=== PATIENT | female | born 1950 | race African-American/Black ===

== ENCOUNTER 2017-04-16 14:32 | Emergency (ER) | payer BC, MEDICARE ==
[~2017-04-16 14:32] MED LIST: CIPR500T4 PO; HYDR200T3 PO; LORTA5 PO; PRED10 PO; TYLE500T PO
[2017-04-16 14:45] VITALS: BP 138/56; PULSE 92; RESP 16; TEMP 98.7; O2SAT 97
--- NOTE | 2017-04-16 16:19 | PD ---
Data Data Last Documented VS Vital Signs Date Time Temp Pulse Resp B/P (MAP) Pulse Ox O2 Delivery O2 Flow Rate FiO2 04/16/17 17:03 04/16/17 14:45 98.7 92 16 97 Orders Orders Finger ([id number]) (04/16/17 ) Ed Discharge Order (04/16/17 16:53) MDM Supervised Visit with VIPUL: No Narrative Course I, Dr. Macdonald, have reviewed the advance practice practitioner's documentation and am in agreement, met with the patient face to face, made the diagnosis, and the medical decision making was done by me. *My assessment and Findings: Patient seen and examined by me in addition to Sher Ruma, this does not to appear to be an infected finger to me, there is some scab formed audibly healing paronychia, she has good cap refill the finger is not hot she appears well and in no obvious distress quite pleasant. History of bilateral BKA's. I do not even see the indication for antibiotics in this patient at this time, an x-ray was reassuring. She is stable for discharge and symptomatic management follow-up with hand surgery at her discretion Disposition: 01 DISCHARGE HOME Condition: Stable Alberto Macdonald MD Apr 16, 2017 16:19
--- NOTE | 2017-04-16 16:19 | PD ---
HPI Chief Complaint: Skin Problem Time Seen by Provider: 15:47 Travel History International Travel<30 days: No Contact w/Intl Traveler<30days: No Traveled to known affect area: No History of Present Illness HPI Patient comes emergency department for reevaluation of left index finger. Patient reports that she began having an infection approximately a month ago has been on Cipro and then switched to Bactrim. Patient has not seen a hand specialist for this yet. Patient reports pain is improved with antibiotics. Describes pain as a throbbing pain but is much better than when it first started. Denies any radiation of the pain. Patient denies any known injury. Patient reports that she contacted by phone her bench hand machine yesterday who recommended she come to the emergency department for IV antibiotics. Patient denies any fevers. PFSH Past Medical History Arthritis: Yes Asthma: No Autoimmune Disease: Yes Blood Disorders: No Anxiety: Yes Depression: No Heart Rhythm Problems: No Cancer: No Cardiovascular Problems: No High Cholesterol: No Chemotherapy: No Chest Pain: No Congestive Heart Failure: No COPD: Yes Cerebrovascular Accident: No Diabetes: No Diminished Hearing: No Endocrine: No Gastrointestinal Disorders: Yes (HX ESOPH. ULCER, C-DIFF COLITIS) GERD: Yes Genitourinary: No Headaches: No Hepatitis: No Hiatal Hernia: Yes Hypertension: Yes Immune Disorder: No Implanted Vascular Access Dvce: No Kidney Stones: No Musculoskeletal: No Neurologic: Yes (LUPUS) Psychiatric: No Reproductive: No Respiratory: No Immunizations Current: Yes Migraines: No Radiation Therapy: No Renal Failure: No Seizures: No Sickle Cell Disease: No Sleep Apnea: No Thyroid Disease: No Ulcer: Yes (ESOPHAGEAL) Menopausal: Yes : 4 Para: 3 : 1 Past Surgical History Abdominal Surgery: Yes (COLOSTOMY) AICD: No Body Medical Devices: BRAIN CLIP Cardiac Surgery: No Ear Surgery: No Endocrine Surgery: No Eye Surgery: No Genitourinary Surgery: Yes (S/P collectomy, New Ileostomy) Gynecologic Surgery: No Joint Replacement: No Neurologic Surgery: Yes (ANEURYSM REMOVED FROM BRAIN) Oral Surgery: No Pacemaker: No Thoracic Surgery: No Other Surgery: Yes Social History Alcohol Use: Yes (SOCIALLY) Tobacco Use: Yes (10 CIGS DAILY) Substance Use: No Allergies-Medications (Allergen,Severity, Reaction): Coded Allergies: penicillin G (Unverified Allergy, Severe, Swelling, 04/16/17) *MDRO Multi-Drug Resistant Organism (Verified Adverse Reaction, Unknown, ) C.diff 10/2013 and 06/2014. Reported Meds & Prescriptions Reported Meds & Active Scripts Active Hydrocodone/Acetaminophen 5 mg/325 mg 1 Tab Tab 2 Tab PO Q6H PRN Reported Tylenol (Acetaminophen) 500 Mg Tab 500 Mg PO Q6H PRN Cipro (Ciprofloxacin HCl) 500 Mg Tab 500 Mg PO BID Hydroxychloroquine Sulfat (Hydroxychloroquine Sulfate) 200 Mg Tab 200 Mg PO Q12 Deltasone 10 Mg Tab (Prednisone) 10 Mg Tab 5 Mg PO DAILY Review of Systems Except as stated in HPI: all other systems reviewed are Neg Physical Exam Narrative GENERAL: Well-developed, well nourished, in no acute distress, and non-ill appearing. SKIN: Patient appears to have a well-healing paronychia of the left index finger. It is afebrile, nontender, and without drainage. There is no crepitus or fluctuation. HEAD: Atraumatic. Normocephalic. EYES: Pupils equal and round. EOMI. No scleral icterus. No injection or drainage. ENT: No nasal bleeding or discharge. Mucous membranes pink and moist. NECK: Trachea midline. Supple. No nuclear rigidity. CARDIOVASCULAR: Capillary refill is equal bilateral upper extremities. RESPIRATORY: No accessory muscle use. No respiratory distress. MUSCULOSKELETAL: No obvious deformities. No clubbing. No cyanosis. No edema. Full range of motion. NEUROLOGICAL: Awake and alert. No obvious cranial nerve deficits. Motor grossly within normal limits. Normal speech. PSYCHIATRIC: Appropriate mood and affect; insight and judgment normal. Data Data Last Documented VS Vital Signs Date Time Temp Pulse Resp B/P (MAP) Pulse Ox O2 Delivery O2 Flow Rate FiO2 04/16/17 17:03 04/16/17 14:45 98.7 92 16 97 Orders Orders Finger ([id number]) (04/16/17 ) Ed Discharge Order (04/16/17 16:53) MDM Medical Decision Making Medical Screen Exam Complete: Yes Emergency Medical Condition: Yes Interpretation(s) Last Impressions Finger X-Ray 04/16/17 0000 Signed Impressions: Service Date/Time: April 16:22 - CONCLUSION: Osteopenia and degenerative changes involving the bony structures especially at the DIP joints. Few small calcifications are seen the soft tissues of the distal second finger. No acute fracture or joint dislocation. Shawn Funes MD Differential Diagnosis Paronychia, healing wound, osteomyelitis Narrative Course The patient presented with a healing paronychia to the finger. There was no extending cellulitis or evidence of suppurative tendonitis. There was no evidence of subungual involvement or felon. Incision and drainage was performed and small pus was liberated. The patient was given wound care and infection warnings and discharged home. The patient was also instructed to follow up with referred physician and warnings to return to ED if worsens, or as directed. The patient agreed with plan. Patient in no obvious distress upon re-evaluation. All pertinent Radiology result(s) discussed with patient. Discussed patient with Dr. Macdonald, who saw and evaluated the patient and is in agreement with plan of care and disposition. Any questions/concerns in reference to patient diagnosis/condition discussed and clarified prior to patient's discharge. Reinforced sheer importance of close follow up with patient's primary physician or primary care clinic and hand surgeon. Instructed patient to return to ED immediately, if symptoms return /worsen. Patient showed understanding of above instructions. Further instructions and recommendations were detailed in discharge paperwork. Patient left without difficulty out of ED at discharge. Diagnosis Primary Impression: Wound healing, delayed Referrals: Nader Mcneill III, MD Patient Instructions: Acute Wound Care (DC), General Instructions, Paronychia ( ED) Additional Instructions: Follow-up with your primary care physician and/or hand surgeon in 1-3 days for reevaluation. Keep wound dry and clean as possible using soap and water. Use Neosporin to promote healing. Soak affected finger in warm Epsom salt baths a few times throughout the day. Return to the emergency department if symptoms get worse. Disposition: 01 DISCHARGE HOME Condition: Stable Cecil Hendrix Apr 16, 2017 16:19
--- NOTE | 2017-04-16 16:39 | RADRPT ---
EXAM DATE/TIME: 04/16/2017 16:22 [facility] COMPARISON: No previous studies available for comparison. INDICATIONS : Finger pain, skin issue. MEDICAL HISTORY : Lupus. SURGICAL HISTORY : Colostomy. Bilateral leg amputations. Brain surgery. Bilateral cataract surgery. ENCOUNTER: Initial ACUITY: 1 month PAIN SCORE: 6/10 LOCATION: Left upper extremity 2nd digit, cuticle area. FINDINGS: Examination of the second digit of the left hand demonstrates no evidence of fracture or dislocation. There is osteopenia and some degenerative changes involving the DIP joints. Soft tissues are grossly unremarkable. There is some nonspecific calcifications in the soft tissues of the distal second fing er. CONCLUSION: Osteopenia and degenerative changes involving the bony structures especially at the DIP joints. Few s mall calcifications are seen the soft tissues of the distal second finger. No acute fracture or joint dislocation. Shawn Funes MD on April 16, 2017 at 16:36 Board Certified Radiologist. This report was verified electronically.
== END 2017-04-16 17:03 | disposition home or self-care (01) ==
LOC: NEPK 14:32
DX: L03.012 Cellulitis of left finger (principal); F41.9 Anxiety disorder, unspecified; J44.9 Chronic obstructive pulmonary disease, unspecified; K21.9 Gastro-esophageal reflux disease without esophagitis; I10 Essential (primary) hypertension; M32.9 Systemic lupus erythematosus, unspecified; Z89.512 Acquired absence of left leg below knee; Z89.511 Acquired absence of right leg below knee; F17.210 Nicotine dependence, cigarettes, uncomplicated
CPT/HCPCS: 73140; 99283

== ENCOUNTER 2017-05-27 17:28 | Inpatient (IN) | payer MEDICARE, BC ==
[~2017-05-27] VITALS: Ht 154.9 cm; Wt 45.8 kg
[2017-05-27 17:36] VITALS: BP 157/73; PULSE 88; RESP 17; TEMP 98.5; O2SAT 100
[2017-05-27 18:13] VITALS: BP_SYST 148; BP_SYST 162; BP_DIAS 70; BP_DIAS 72; PULSE 87; RESP 18; O2SAT 95
[2017-05-27] MEDS ORDERED: SODIUM CHLORIDE 0.9% FLUSH 10 ML FLUSH IV FLUSH PRN ×2 (18:30→23:00)
[2017-05-27] MEDS ORDERED: MORPHINE SULFATE 4 MG/ML INJ IV PUSH ONE (18:30)
[2017-05-27] MEDS ORDERED: ONDANSETRON HCL 4 MG/2 ML VIAL IVP ONE (18:30)
[2017-05-27 18:33] VITALS: O2SAT 97
[2017-05-27] MEDS ORDERED: PLAQ200T PO (18:34)
--- NOTE | 2017-05-27 18:38 | PD ---
HPI Chief Complaint: Skin Problem Time Seen by Provider: 18:13 Travel History International Travel<30 days: No Contact w/Intl Traveler<30days: No Traveled to known affect area: No History of Present Illness HPI Patient is a 67-year-old female presenting emergency department for evaluation of right thumb pain and swelling. Patient states her symptoms started at the end of March. She reports noticing pain in her thumb, this has progressed. She states for the last 2 weeks she has had what appeared to be an infection on the side of her fingernail. She came to the emergency department about 10 days ago and it was drained. Since that time, more specifically for the last 4-5 days she has had increased swelling, and a blackened area to the medial aspect of the nail. Patient reports a history of peripheral artery disease, peripheral vascular disease. Patient states the pain is 8 out of 10, she states is aching and throbbing. She denies any fever, chills, drainage. Patient is on any blood thinners secondary to history of an aneurysm. PFSH Past Medical History Arthritis: Yes Autoimmune Disease: Yes Anxiety: Yes COPD: Yes Gastrointestinal Disorders: Yes (HX ESOPH. ULCER, C-DIFF COLITIS) GERD: Yes Hiatal Hernia: Yes Hypertension: Yes Neurologic: Yes (LUPUS) Immunizations Current: Yes Ulcer: Yes (ESOPHAGEAL) Menopausal: Yes : 4 Para: 3 : 1 Past Surgical History Abdominal Surgery: Yes (COLOSTOMY) Body Medical Devices: BRAIN CLIP Genitourinary Surgery: Yes (S/P collectomy, New Ileostomy) Neurologic Surgery: Yes (ANEURYSM Repair) Other Surgery: Yes Social History Alcohol Use: Yes (SOCIALLY) Tobacco Use: Yes (10 CIGS DAILY) Substance Use: No Allergies-Medications (Allergen,Severity, Reaction): Coded Allergies: penicillin G (Unverified Allergy, Severe, Swelling, 05/27/17) *MDRO Multi-Drug Resistant Organism (Verified Adverse Reaction, Unknown, ) C.diff 10/2013 and 06/2014. Reported Meds & Prescriptions Reported Meds & Active Scripts Active Reported Plaquenil (Hydroxychloroquine Sulfate) 200 Mg Tab 100 Mg PO DAILY Take with food Review of Systems Except as stated in HPI: all other systems reviewed are Neg Musculoskeletal: Positive: Myalgias, Edema, Pain Skin: Positive Change in Pigmentation, Positive Lesions Physical Exam Narrative GENERAL: Thin, well-developed, alert -[place] female. Presenting in no acute distress. SKIN: Warm and dry. Edema to right first finger, there is an area of eschar to the lateral aspect of the left first fingernail extending to the middle of the base of the nail, discoloration to the finger pad. There is significant tenderness to palpation. Decreased capillary refill. HEAD: Atraumatic. Normocephalic. EYES: Pupils equal and round. No scleral icterus. No injection or drainage. ENT: No nasal bleeding or discharge. Mucous membranes pink and moist. NECK: Trachea midline. No JVD. CARDIOVASCULAR: Regular rate and rhythm. 2+ radial pulse, brisk less than 3 second capillary refill in the second through fifth fingers. RESPIRATORY: No accessory muscle use. Clear to auscultation. Breath sounds equal bilaterally. GASTROINTESTINAL: Abdomen soft, non-tender, nondistended. Hepatic and splenic margins not palpable. MUSCULOSKELETAL: Extremities without clubbing, cyanosis, or edema. No obvious deformities. NEUROLOGICAL: Awake and alert. No obvious cranial nerve deficits. Motor grossly within normal limits. Five out of 5 muscle strength in the arms and legs. Normal speech. PSYCHIATRIC: Appropriate mood and affect; insight and judgment normal. Data Data Last Documented VS Vital Signs Date Time Temp Pulse Resp B/P (MAP) Pulse Ox O2 Delivery O2 Flow Rate FiO2 05/27/17 19:52 83 18 161/74 (103) Room Air 05/27/17 18:33 97 05/27/17 17:36 98.5 Orders Orders Complete Blood Count With Diff (05/27/17 18:23) C-Reactive Protein (Crp) (05/27/17 18:23) Westergren Sedimentation Rate (05/27/17 18:23) Comprehensive Metabolic Panel (05/27/17 18:23) Iv Access Insert/Monitor (05/27/17 18:23) Ecg Monitoring (05/27/17 18:23) Oximetry (05/27/17 18:23) Morphine Inj (Morphine Inj) (05/27/17 18:30) Ondansetron Inj (Zofran Inj) (05/27/17 18:30) Sodium Chloride 0.9% Flush (Ns Flush) (05/27/17 18:30) Ct Hand W/O Contrast (05/27/17 ) Oxycodone-Acetamin 5-325 Mg (Percocet (05/27/17 19:45) Vancomycin Inj (Vancomycin Inj) (05/27/17 19:45) Aztreonam Inj (Azactam Inj) (05/27/17 19:45) Blood Culture (05/27/17 19:36) Hand, Complete ([id number]) (05/27/17 ) C Diff Toxin Pcr (05/27/17 20:52) Admit Order (Ed Use Only) (05/27/17 21:47) Labs Laboratory Tests Test 05/27/17 18:40 05/27/17 21:02 White Blood Count 6.6 TH/MM3 Red Blood Count 3.76 MIL/MM3 Hemoglobin 12.2 GM/DL Hematocrit 36.3 % Mean Corpuscular Volume 96.5 FL Mean Corpuscular Hemoglobin 32.5 PG Mean Corpuscular Hemoglobin Concent 33.7 % Red Cell Distribution Width 13.4 % Platelet Count 342 TH/MM3 Mean Platelet Volume 8.0 FL Neutrophils (%) (Auto) 66.1 % Lymphocytes (%) (Auto) 20.7 % Monocytes (%) (Auto) 12.2 % Eosinophils (%) (Auto) 0.5 % Basophils (%) (Auto) 0.5 % Neutrophils # (Auto) 4.4 TH/MM3 Lymphocytes # (Auto) 1.4 TH/MM3 Monocytes # (Auto) 0.8 TH/MM3 Eosinophils # (Auto) 0.0 TH/MM3 Basophils # (Auto) 0.0 TH/MM3 CBC Comment DIFF FINAL Differential Comment Erythrocyte Sedimentation Rate 49 mm/hr Blood Urea Nitrogen 12 MG/DL Creatinine 1.03 MG/DL Random Glucose 92 MG/DL Total Protein 7.6 GM/DL Albumin 3.2 GM/DL Calcium Level 8.7 MG/DL Alkaline Phosphatase 49 U/L Aspartate Amino Transf (AST/SGOT) 26 U/L Alanine Aminotransferase (ALT/SGPT) 15 U/L Total Bilirubin 0.2 MG/DL Sodium Level 137 MEQ/L Potassium Level 3.9 MEQ/L Chloride Level 102 MEQ/L Carbon Dioxide Level 28.7 MEQ/L Anion Gap 6 MEQ/L Estimat Glomerular Filtration Rate 64 ML/MIN C-Reactive Protein 1.50 MG/DL MDM Medical Decision Making Medical Screen Exam Complete: Yes Emergency Medical Condition: Yes Interpretation(s) Vital Signs Date Time Temp Pulse Resp B/P (MAP) Pulse Ox O2 Delivery O2 Flow Rate FiO2 05/27/17 18:13 87 18 162/72 (102) 95 Room Air 148/70 (96) 05/27/17 17:36 98.5 88 17 157/73 (101) 100 Differential Diagnosis Cellulitis versus abscess versus necrosis versus other Narrative Course Patient is a 67-year-old female presenting to the emergency department for evaluation of worsening pain, swelling and skin changes to her right first finger. Her past medical history significant for peripheral vascular disease, peripheral artery disease. Patient was in the emergency department 10 days ago mom was advised to follow-up with a hand surgeon, she did not do that. Said patient waited for her daughter to come over despite her symptoms getting worse over the last 4-5 days. Labs and imaging ordered and pending. Patient was given medications for pain. CBC with no acute findings, sed rate is 49 Chemistry is unremarkable, CRP is 1.5 Patient reported unusually foul-smelling stool from her colostomy bag. She does have a history of C. difficile per her report. Stool specimen ordered and pending. Discussed findings with my attending physician, Dr. Noble also evaluated patient. Patient will be admitted, she has received a dose of Azactam and vancomycin in the emergency department. Patient will benefit from evaluation from cardiovascular surgeon. Patient has poor follow-up. Patient is agreeable to stay. Admit orders placed. Diagnosis Primary Impression: Ischemic finger Additional Impression: PVD (peripheral vascular disease) Admitting Information Admitting Physician Requests: Admit Condition: Stable Jenny Sen May 27, 2017 18:38
[2017-05-27 19:10] VITALS: BP 108/74; PULSE 92; RESP 20; O2SAT 94
[2017-05-27 19:26] LABS: AUTOMATED NEUTROPHIL # 4.4 TH/MM3 (1.8-7.7); BASOPHIL % 0.5 % (0.0-2.0); EOSINOPHIL % 0.5 % (0.0-4.0); HEMATOCRIT 36.3 % (35.0-46.0); HEMOGLOBIN 12.2 GM/DL (11.6-15.3); LYMPH % 20.7 % (9.0-44.0); LYMPHOCYTE # 1.4 TH/MM3 (1.0-4.8); MEAN CELL VOLUME 96.5 FL (80.0-100.0); MEAN CORPUSCULAR HEMOGLOBIN 32.5 PG (27.0-34.0); MEAN CORPUSCULAR HGB CONC 33.7 % (32.0-36.0); MONO % 12.2 % (0.0-8.0); MONOCYTE # 0.8 TH/MM3 (0-0.9); NEUT % 66.1 % (16.0-70.0); PLATELET COUNT 342 TH/MM3 (150-450); RED BLOOD COUNT 3.76 MIL/MM3 (4.00-5.30); RED CELL DISTRIBUTION WIDTH 13.4 % (11.6-17.2); WHITE BLOOD COUNT 6.6 TH/MM3 (4.0-11.0)
[2017-05-27 19:35] LABS: ALT (GPT) 15 U/L (10-53)
[2017-05-27 19:37] LABS: ALKALINE PHOSPHATASE 49 U/L (45-117); TOTAL BILIRUBIN ADULT 0.2 MG/DL (0.2-1.0); TOTAL PROTEIN 7.6 GM/DL (6.4-8.2)
[2017-05-27 19:45] LABS: ALBUMIN 3.2 GM/DL (3.4-5.0); AST (GOT) 26 U/L (15-37); BICARBONATE 28.7 MEQ/L (21.0-32.0); BLOOD UREA NITROGEN 12 MG/DL (7-18); CALCIUM 8.7 MG/DL (8.5-10.1); CHLORIDE 102 MEQ/L (98-107); CREATININE 1.03 MG/DL (0.50-1.00); GLOMERULAR FILTRATION RATE 64 ML/MIN (>89); GLUCOSE,RANDOM 92 MG/DL (74-106); SODIUM (NA) 137 MEQ/L (136-145)
[2017-05-27] MEDS ORDERED: AZTREONAM INJ 1,000 MG in SODIUM CHLORIDE 0.9% INJ 100 ML IV ONE (19:45)
[2017-05-27] MEDS ORDERED: VANCOMYCIN INJ 1,000 MG in SODIUM CHLOR 0.9% 250 ML INJ 250 ML IV ONE (19:45)
[2017-05-27] MEDS ORDERED: oxyCODONE/ACETAMINOPHEN 5 MG/325 MG TAB PO ONE ×2 (19:45→23:00)
[2017-05-27 19:52] VITALS: BP 161/74; PULSE 83; RESP 18; O2SAT 98
--- NOTE | 2017-05-27 21:02 | RADRPT ---
EXAM DATE/TIME: 05/27/2017 19:34 [facility] COMPARISON: HAND RIGHT COMPLETE ([id number]), May 27, 2017, 20:33. INDICATIONS : Right hand pain and swelling. Evaluate for osteomyelitis. RADIATION DOSE: 11.61 CTDIvol (mGy) MEDICAL HISTORY : Lupus. SURGICAL HISTORY : None. ENCOUNTER: Initial ACUITY: 2 weeks PAIN SCALE: 10/10 LOCATION: Right hand. TECHNIQUE: Volumetric scanning of the hand was performed. Using automated exposure control and adjustment of th e mA and/or kV according to patient size, radiation dose was kept as low as reasonably achievable to obtain optimal diagnostic quality images. DICOM format image data is available electronically for re view and comparison. FINDINGS: The examination is moderately degraded by patient motion. Grossly, no destructive changes are appreci ated. There is no definite fracture or dislocation. There is no evidence of mass or collection. CONCLUSION: Motion degraded exam grossly negative for acute bony process Ricardo Madison MD on May 27, 2017 at 20:49 Board Certified Radiologist. This report was verified electronically.
--- NOTE | 2017-05-27 21:05 | RADRPT ---
EXAM DATE/TIME: 05/27/2017 20:33 [facility] COMPARISON: No previous studies available for comparison. INDICATIONS : Right thumb pain and swelling for 2 weeks. MEDICAL HISTORY : Lupus. SURGICAL HISTORY : Colostomy. Bilateral leg amputations. Brain surgery. Bilateral cataract. ENCOUNTER: Initial ACUITY: 2 weeks PAIN SCORE: 8/10 LOCATION: Right thumb. FINDINGS: There is mild demineralization. No evidence of fracture, dislocation or bony destruction. There is sc attered soft tissue calcifications most notably in the first second and third digits. Mild joint spac e narrowing, distal predominant in the phalanges CONCLUSION: No acute bony findings. Ricardo Madison MD on May 27, 2017 at 21:01 Board Certified Radiologist. This report was verified electronically.
[2017-05-27 22:00] VITALS: BP 167/70; PULSE 76; RESP 18; O2SAT 99
[2017-05-27] MEDS ORDERED: NALOXONE HCL 0.4 MG/ML AMP IV PUSH PRN (23:00)
[2017-05-27] MEDS ORDERED: MAGNESIUM HYDROXIDE SUSP 30 ML CUP PO PRN (23:00)
[2017-05-27] MEDS ORDERED: LACTULOSE SYRUP 20 GM/30 ML CUP PO PRN (23:00)
[2017-05-27] MEDS ORDERED: SENNOSIDES 8.6 MG TAB PO PRN (23:00)
[2017-05-27] MEDS ORDERED: BISACODYL 10 MG SUPP RECTAL PRN (23:00)
[2017-05-27] MEDS ORDERED: ACETAMINOPHEN 325 MG TAB PO PRN (23:00)
[2017-05-27] MEDS ORDERED: PROCHLORPERAZINE INJ 10 MG/2 ML VIAL IV PUSH PRN (23:15)
[2017-05-27] MEDS ORDERED: RESP: ALBUTEROL 2.5 MG/IPRATROPIUM 0.5 MG NEB (PRN) NEB (23:15)
[2017-05-27] MEDS ORDERED: Vancomycin Consult Pharmacy 1 EA OTHER SCH (23:15)
[2017-05-27] MEDS: DEXT 5%-NACL 0.9% 1000 ML INJ 1,000 ML IV SCH (23:28)
[2017-05-28] VITALS (8 sets, daily range): BP systolic 141–178; BP diastolic 69–91; PULSE 67–96; RESP 17–20; TEMP 99–99.3; O2SAT 95–97
[2017-05-28] MEDS: oxyCODONE/ACETAMINOPHEN 5 MG/325 MG TAB PO PRN ×2 (04:01→20:16)
[2017-05-28] MEDS: AZTREONAM INJ 1,000 MG in SODIUM CHLORIDE 0.9% INJ 100 ML IV SCH ×3 (05:14→21:07)
[2017-05-28 08:09] LABS: AUTOMATED NEUTROPHIL # 2.9 TH/MM3 (1.8-7.7); BASOPHIL % 0.2 % (0.0-2.0); EOSINOPHIL % 0.7 % (0.0-4.0); HEMATOCRIT 35.7 % (35.0-46.0); HEMOGLOBIN 11.8 GM/DL (11.6-15.3); LYMPH % 24.2 % (9.0-44.0); LYMPHOCYTE # 1.2 TH/MM3 (1.0-4.8); MEAN CORPUSCULAR HEMOGLOBIN 32.5 PG (27.0-34.0); MEAN CORPUSCULAR HGB CONC 33.2 % (32.0-36.0); MEAN PLATELET VOLUME 7.8 FL (7.0-11.0); MONO % 13.4 % (0.0-8.0); MONOCYTE # 0.6 TH/MM3 (0-0.9); NEUT % 61.5 % (16.0-70.0); PLATELET COUNT 314 TH/MM3 (150-450); RED BLOOD COUNT 3.64 MIL/MM3 (4.00-5.30); RED CELL DISTRIBUTION WIDTH 13.6 % (11.6-17.2); WHITE BLOOD COUNT 4.8 TH/MM3 (4.0-11.0)
[2017-05-28 08:37] LABS: BICARBONATE 25.4 MEQ/L (21.0-32.0); CALCIUM 8.7 MG/DL (8.5-10.1); CREATININE 0.7 MG/DL (0.50-1.00)
[2017-05-28] MEDS: DOCUSATE SODIUM 50 MG/SENNA 8.6 MG TAB PO SCH ×2 (09:00→20:16)
[2017-05-28] MEDS: MORPHINE SULFATE 2 MG/ML SYRINGE IV PUSH PRN ×2 (10:01→14:50)
[2017-05-28] MEDS: DEXT 5%-NACL 0.9% 1000 ML INJ 1,000 ML IV SCH ×2 (10:04→18:15)
[2017-05-28] MEDS: SODIUM CHLORIDE 0.9% FLUSH 10 ML FLUSH IV FLUSH SCH ×2 (10:04→20:20)
--- NOTE | 2017-05-28 10:31 | PD.VS.CON ---
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 Review of Systems Constitutional: DENIES: Fever, Chills Musculoskeletal: DENIES: Stiffness (RIGHT thumb swelling with necrotic tissue present ) Integumentary: COMPLAINS OF: Abnormal pigmentation (Lateral aspect of RIGHT thumb necrotic ) ([place] Gracia) Physical Exam Vitals/I&O Date Time Temp Pulse Resp B/P (MAP) Pulse Ox O2 Delivery O2 Flow Rate FiO2 05/28/17 07:30 77 17 150/69 (96) 96 Room Air 05/28/17 05:14 18 05/28/17 04:30 70 18 161/82 (108) 97 Room Air 05/28/17 00:38 67 20 171/80 (110) 97 Room Air 05/28/17 00:15 18 05/27/17 22:00 76 18 167/70 (102) 99 Room Air 05/27/17 21:54 20 05/27/17 19:52 83 18 161/74 (103) 98 Room Air 05/27/17 18:33 97 Room Air 05/27/17 18:13 87 18 162/72 (102) 95 Room Air 148/70 (96) 05/27/17 17:36 98.5 88 17 157/73 (101) 100 05/28/17 05/28/17 05/28/17 07:00 15:00 23:00 Intake Total 100 ml Balance 100 ml Neuro: A&OX3 GCS 15 Neck: NO JVD distention No Carotid bruits present Heart: RRR + S1,S2 Lungs: CTA Abdomen: S/NT Vascular: Palpable R Radial (2+) Non palpable L Radial UE warm and dry with motor intact R UE Cap refill > 4 sec Extremities: R thumb painful to touch, swollen w/ necrotic lateral aspect of thumb near nail bed to tip No odor/drainage noted Equal radio maintainer strength B BKA ([place] 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) Laboratory Tests Test 05/27/17 18:40 05/27/17 21:02 05/28/17 07:18 White Blood Count 6.6 4.8 Red Blood Count 3.76 3.64 Hemoglobin 12.2 11.8 Hematocrit 36.3 35.7 Mean Corpuscular Volume 96.5 98.0 Mean Corpuscular Hemoglobin 32.5 32.5 Mean Corpuscular Hemoglobin Concent 33.7 33.2 Red Cell Distribution Width 13.4 13.6 Platelet Count 342 314 Mean Platelet Volume 8.0 7.8 Neutrophils (%) (Auto) 66.1 61.5 Lymphocytes (%) (Auto) 20.7 24.2 Monocytes (%) (Auto) 12.2 13.4 Eosinophils (%) (Auto) 0.5 0.7 Basophils (%) (Auto) 0.5 0.2 Neutrophils # (Auto) 4.4 2.9 Lymphocytes # (Auto) 1.4 1.2 Monocytes # (Auto) 0.8 0.6 Eosinophils # (Auto) 0.0 0.0 Basophils # (Auto) 0.0 0.0 CBC Comment DIFF FINAL DIFF FINAL Differential Comment Erythrocyte Sedimentation Rate 49 Blood Urea Nitrogen 12 10 Creatinine 1.03 0.70 Random Glucose 92 88 Total Protein 7.6 Albumin 3.2 Calcium Level 8.7 8.7 Alkaline Phosphatase 49 Aspartate Amino Transf (AST/SGOT) 26 Alanine Aminotransferase (ALT/SGPT) 15 Total Bilirubin 0.2 Sodium Level 137 140 Potassium Level 3.9 3.5 Chloride Level 102 106 Carbon Dioxide Level 28.7 25.4 Anion Gap 6 9 Estimat Glomerular Filtration Rate 64 100 C-Reactive Protein 1.50 Stool C. difficile Toxin (PCR) NEGATIVE Stl C. difficile Toxin Epiderm 027 PRESUMPTIVE NEGATIVE Date/Time Source Procedure Growth Status 05/27/17 20:00 Blood Peripheral Aerobic Blood Culture Pending Received 05/27/17 20:00 Blood Peripheral Anaerobic Blood Culture Pending Received Last 48 hours Impressions Upper Extremity CT 05/27/17 0000 Signed Impressions: Service Date/Time: Saturday, May 27, 2017 19:34 - CONCLUSION: Motion degraded exam grossly negative for acute bony process Ricardo Madison MD Hand X-Ray 05/27/17 0000 Signed Impressions: Service Date/Time: Saturday, May 27, 2017 20:33 - CONCLUSION: No acute bony findings. Ricardo Madison MD ([place] Gracia) Assessment and Plan Assessment: (1) PVD (peripheral vascular disease) Status: Chronic Plan Ms. Buckley is a 67/F who arrived to the ED for an evaluation of her worsening necrotic RIGHT thumb Pt with palpable R UE distal pulses UE warm w/ motor intact Reviewed recent imaging studies/labs Plan Ordered CTA to r/o embolic source Will review CTA to determine next plan of action [place] Gracia NP [facility] [phone] ([place] Gracia) Plan Pt with ischemic UE digits. Palpable R UE brachial and radial pulses. Palpable L UE brachial pulse only. Suspect no major vascular issues. CTA R UE ordered. If normal, suggest only medical management of CV risk factors (ASA, statin) and management of ischemic digit per hand. Alberto Delgado MD FACS [employer] batterboard setter [facility] - Heart [facility] Vascular Surgery at [facility] [phone] (Alberto Delgado MD) Sav[place] Gracia May 28, 2017 10:31 Alberto Delgado MD May 28, 2017 12:11
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
[2017-05-28] MEDS ORDERED: IOHEXOL 350 MG/ML 10 ML VIAL (for RAD DIAG) IVCONTRAST ONE (11:23)
--- NOTE | 2017-05-28 11:54 | RADRPT ---
EXAM DATE/TIME: 05/28/2017 11:13 [facility] COMPARISON: No previous studies available for comparison. INDICATIONS : Necrotic right thumb, infection IV CONTRAST: 98 cc Omnipaque 350 (iohexol) IV RADIATION DOSE: 11.68 CTDIvol (mGy) MEDICAL HISTORY : Lupus. Chronic obstructive pulmonary disease. SURGICAL HISTORY : Fem-pop ENCOUNTER: Initial ACUITY: 3 days PAIN SCALE: 5/10 LOCATION: Right hand TECHNIQUE: Volumetric scanning was performed using a multirow detector CT scanner. Using automated exposure cont rol and adjustment of the mA and/or kV according to patient size, radiation dose was kept as low as r easonably achievable to obtain optimal diagnostic quality images. The data was post processed with a variety of visualization algorithms including full-volume maximum intensity projection, multiplanar sliding thin-slab reformation, curved-planar reformation, and surface-rendering techniques. Using au tomated exposure control and adjustment of the mA and/or kV according to patient size, radiation dose was kept as low as reasonably achievable to obtain optimal diagnostic quality images. DICOM format image data is available electronically for review and comparison. FINDINGS: There is 3 vessel arch anatomy. Origin of the arch vessels are patent. Eccentric calcified plaque in the distal brachiocephalic artery with mild resultant stenosis. Right subclavian artery is patent. Ri ght axillary artery is patent. Right brachial artery is patent. There is a slightly high origin of th e right radial artery with abrupt occlusion at the level of the wrist. The right ulnar artery is very diminutive in caliber and not well demonstrated beyond the proximal to mid forearm. There is a paten t right interosseous artery extending to the distal forearm. Additional findings: Diffuse plaque throughout the thoracoabdominal aorta with mild gross aneurysm or flow limiting stenos is. The right iliac arteries are heavily calcified without significant focal flow-limiting stenosis. Eccentric calcified plaque distally in the right common femoral artery without significant flow-limit ing stenosis. The right SFA is very diminutive in caliber and occluded in the proximal thigh. The pro eduar is patent. The esophagus is dilated and filled with debris throughout its visualized portions. Visualized right lung is clear. Visualized portions of the liver, gallbladder and right kidney are unremarkable. No fo shama lytic or blastic bony lesions. CONCLUSION: 1. No significant inflow stenosis to the right upper extremity. 2. Patent right brachial artery. 3. Abrupt occlusion of the right radial artery at the level of the wrist which may reflect embolism o r focal intimal injury with thrombosis. Ulnar artery is very diminutive in caliber and not visualized beyond the proximal to mid forearm. Interosseous artery does extend to the distal forearm. Suspect h and is supplied by small collateral branches although the palmar arches are not visualized on this e xam. 4. Occlusion of the right SFA in the proximal right thigh. This is only partially imaged. 5. Dilated debris filled esophagus throughout its course. Steve Malhotra MD on May 28, 2017 at 11:37 Board Certified Radiologist. This report was verified electronically.
[2017-05-28] MEDS ORDERED: ENALAPRILAT 1.25 MG/ML VIAL IV PUSH PRN (14:00)
[2017-05-28] MEDS: amLODIPine BESYLATE 5 MG TAB PO SCH (14:50)
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
[2017-05-28] MEDS ORDERED: VANCOMYCIN INJ 750 MG in SODIUM CHLOR 0.9% 250 ML INJ 250 ML IV SCH (20:00)
[2017-05-29] VITALS: BP 137/63; PULSE 79; RESP 18; TEMP 98.7; O2SAT 95
[2017-05-29] MEDS: DEXT 5%-NACL 0.9% 1000 ML INJ 1,000 ML IV SCH ×2 (02:20→15:00)
[2017-05-29] MEDS: AZTREONAM INJ 1,000 MG in SODIUM CHLORIDE 0.9% INJ 100 ML IV SCH ×2 (04:57→13:00)
[2017-05-29 05:00] VITALS: BP 133/74; PULSE 83; RESP 18; TEMP 98.9; O2SAT 97
[2017-05-29] MEDS: oxyCODONE/ACETAMINOPHEN 5 MG/325 MG TAB PO PRN ×3 (05:02→16:24)
[2017-05-29 07:00] VITALS: BP 159/70; PULSE 84; RESP 20; TEMP 97.9; O2SAT 94
--- NOTE | 2017-05-29 08:27 | MB ---
cc: Nader Mcneill MD DATE: 05/28/2017 HISTORY OF PRESENT ILLNESS: The patient is a very friendly 67-year-old female from [place], who has a complex medical history. The patient has a history of ischemia and peripheral vascular disease. She states the symptoms in her thumb started in March. PAST MEDICAL HISTORY: Arthritis, lupus, anxiety, COPD, esophageal ulcer, Clostridium difficile colitis, GERD, hiatal hernia, hypertension. PAST SURGICAL HISTORY: Colostomy, brain clipping for an aneurysm. SOCIAL HISTORY: Drinks alcohol socially. Smokes half a pack a day. ALLERGIES: PENICILLIN G. ACTIVE MEDICATIONS AT HOME: He takes Plaquenil. REVIEW OF SYSTEMS: Except as stated in HPI. All other systems reviewed are negative. She does not complain of any headaches or blurred or double vision. He does not complain of any cough, wheeze or shortness of breath. She does not complain of any chest pain or palpitations. She does not complain of any nausea, vomiting or abdominal pain. She does not complain of any burning, frequency or urgency with urination. She does not complain of any anxiety, depression or suicidal ideations. She does not complain of any night sweats, fevers or chills. IMAGING: Upper extremity CT, hand x-ray and upper extremity CT angio are in the chart. The CT angio was revealing abrupt occlusion of the right radial artery, at the level of the wrist, which may reflect embolism or focal intimal injury with thrombosis. Ulnar artery is very diminutive in caliber, not visualized beyond the proximal to mid forearm. Interosseous artery does extend to the distal forearm, suspect hand is supplied by small collateral branches, although the palmar arches are not visualized on this exam. I reviewed the CT angio, but could not find anything more revealing than as stated in the report. LABORATORY STUDIES: White blood cell count 4.8, hemoglobin of 11.8 grams per deciliter, platelet count of 314,000. ESR is low. BUN and creatinine are 10 and 0.7. Stool for C. difficile toxin PCR was negative. PHYSICAL EXAMINATION: GENERAL: She is an unfortunate, but very pleasant lady in no apparent distress. She is awake, alert and oriented x 3. HEENT: Normocephalic, atraumatic. Pupils are equal, round. PULMONARY: Her respiratory effort is normal. MUSCULOSKELETAL: She has obvious bilateral lower extremity amputations, below the knee. They are clean and healed. Examination of the right upper extremity reveals full active range of motion, but she has some stiffness in the thumb. The radial side of the tip of the thumb is ischemic necrotic. There is a small amount of dry gangrene. There is no erythema, fluctuance or any suggestion of infection. There is no open wound. There is no wet gangrenous portion to this. Capillary refill is a brisk 2 seconds or better in all fingers otherwise. All surfaces are soft. She has a bounding radial pulse that is palpable. There is no evidence of any infection. The hand, fingers and forearm are all soft and warm. IMPRESSION: Raynaud's phenomenon, with possible embolic phenomenon downstream in the right hand. MY RECOMMENDATION IS FOR: Continue the trial of the nifedipine. If this does not improve things, we can try nitro paste to the hand and over the arteries in the wrist. In the meantime, I put in a consult for Dr. Umana to consider the patient for spinal cord stimulation as a way to address the ischemia. I discussed this with the patient, as well as Dr. España and they understand, agree, wish to proceed. This can be done as an outpatient. This does not have to be done as an inpatient by any means. There is no indication for surgical intervention at this time. MD SILVINA Solis/MALGORZATA , 04:56 PM , 05:24 PM
[2017-05-29 08:30] VITALS: PULSE 76
[2017-05-29] MEDS: SODIUM CHLORIDE 0.9% FLUSH 10 ML FLUSH IV FLUSH SCH (09:00)
[2017-05-29] MEDS: DOCUSATE SODIUM 50 MG/SENNA 8.6 MG TAB PO SCH (09:00)
[2017-05-29] MEDS: amLODIPine BESYLATE 5 MG TAB PO SCH (09:00)
--- NOTE | 2017-05-29 13:06 | PD.VS.PN ---
Subjective Subjective/Hospital Course Pt has stable R thumb tissue loss; hand surgery saw patient and has a plan. She has no R UE atherosclerotic lesions and may in fact have a distal radial artery occlusion within the hand. Objective Vitals/I&O Date Time Temp Pulse Resp B/P (MAP) Pulse Ox O2 Delivery O2 Flow Rate FiO2 05/29/17 08:30 76 05/29/17 07:00 97.9 84 20 159/70 (99) 94 05/29/17 05:00 98.9 83 18 133/74 (93) 97 05/29/17 00:00 98.7 79 18 137/63 (87) 95 05/28/17 21:33 93 05/28/17 20:00 99.0 96 18 177/78 (111) 97 05/28/17 16:24 99.3 82 18 158/74 (102) 97 05/28/17 14:47 91 17 141/91 (108) 95 Room Air 05/29/17 05/29/17 05/29/17 07:00 15:00 23:00 Intake Total 1355 ml Balance 1355 ml Physical Exam R thumb stable. palpable radial pulse Laboratory Date/Time Source Procedure Growth Status 05/27/17 20:00 Blood Peripheral Aerobic Blood Culture - Preliminary NO GROWTH IN 2 DAYS Resulted 05/27/17 20:00 Blood Peripheral Anaerobic Blood Culture - Preliminary NO GROWTH IN 2 DAYS Resulted Imaging Last 48 hours Impressions Upper Extremity CTA 05/28/17 0000 Signed Impressions: Service Date/Time: May 11:13 - CONCLUSION: 1. No significant inflow stenosis to the right upper extremity. 2. Patent right brachial artery. 3. Abrupt occlusion of the right radial artery at the level of the wrist which may reflect embolism or focal intimal injury with thrombosis. Ulnar artery is very diminutive in caliber and not visualized beyond the proximal to mid forearm. Interosseous artery does extend to the distal forearm. Suspect hand is supplied by small collateral branches although the palmar arches are not visualized on this exam. 4. Occlusion of the right SFA in the proximal right thigh. This is only partially imaged. 5. Dilated debris filled esophagus throughout its course. Steve Malhotra MD Assessment and Plan Assessment: (1) PVD (peripheral vascular disease) Status: Chronic Plan Pt with ischemic UE digits. Palpable R UE brachial and radial pulses. Palpable L UE brachial pulse only. CTA reviewed - no vascular intervention needed. f/u with hand surgery can f/u with us prn Alberto Delgado MD FACS [employer] non [employer] job titles [facility] at [facility] [phone] Discharge Planning anytime from a vascular surgery standpoint Alberto Delgado MD May 29, 2017 13:05
[2017-05-29] MEDS ORDERED: OXYC1TAB63 PO (13:35)
[2017-05-29 13:43] VITALS: PULSE 72
--- NOTE | 2017-05-29 14:12 | HHI.DS ---
Discharge Summary Admission Date May 27, 2017 at 21:48 Admitting Diagnosis ISCHEMIC FINGER CBC/BMP: 05/28/17 0718 05/28/17 0718 Significant Findings Laboratory Tests Test 05/27/17 18:40 05/27/17 21:02 05/28/17 07:18 Red Blood Count 3.76 MIL/MM3 (4.00-5.30) 3.64 MIL/MM3 (4.00-5.30) Monocytes (%) (Auto) 12.2 % (0.0-8.0) 13.4 % (0.0-8.0) Erythrocyte Sedimentation Rate 49 mm/hr (0-30) Creatinine 1.03 MG/DL (0.50-1.00) Albumin 3.2 GM/DL (3.4-5.0) Estimat Glomerular Filtration Rate 64 ML/MIN (>89) C-Reactive Protein 1.50 MG/DL (0.00-0.30) Pt Condition on Discharge: Good Discharge Disposition: Discharge Home Discharge Instructions DIET: Follow Instructions for: Heart Healthy Diet Activities you can perform: Weight Bearing as Alia Olson MD May 29, 2017 14:12
[2017-05-29 16:00] VITALS: PULSE 86
[2017-05-30] MEDS ORDERED: AMLO5TAB2 PO (08:09)
--- NOTE | 2017-05-30 08:15 | HHI.DS ---
Discharge Summary Admission Date May 27, 2017 at 21:48 Discharge Date: May 29, 2017 Admitting Diagnosis ISCHEMIC FINGER (1) Ischemia of digits of hand ICD Code: I99.8 - Other disorder of circulatory system (2) PVD (peripheral vascular disease) ICD Code: I73.9 - Peripheral vascular disease, unspecified Procedures None Brief History - From Admission 67 years old -Irish female with history of lupus, PVD, GERD and bilateral BKA anxiety presented to the ED complaining of right thumb and change in color which was going on for 2 weeks, patient reported not being able to use her right hand do her daily tasks pain is 9 out of 10, throbbing in nature along with erythema and scaling paling around the lesion. Patient denied any other associated complaint Plan: Plan: CBC/BMP: 05/28/17 0718 05/28/17 0718 Significant Findings Laboratory Tests Test 05/27/17 18:40 05/27/17 21:02 05/28/17 07:18 Red Blood Count 3.76 MIL/MM3 (4.00-5.30) 3.64 MIL/MM3 (4.00-5.30) Monocytes (%) (Auto) 12.2 % (0.0-8.0) 13.4 % (0.0-8.0) Erythrocyte Sedimentation Rate 49 mm/hr (0-30) Creatinine 1.03 MG/DL (0.50-1.00) Albumin 3.2 GM/DL (3.4-5.0) Estimat Glomerular Filtration Rate 64 ML/MIN (>89) C-Reactive Protein 1.50 MG/DL (0.00-0.30) Hospital Course 67-year-old female with history of PVD bilateral BKA, GERD, lupus, hypertension presented to the ED with Right thumb necrosis mostly vascular, consult hand surgery Consult vascular surgery they recommended CTA to assess circulation in the right upper extremity, they did not recommend any surgical intervention at this point Started on Azactam in ED for possible underlying infection, consider stopping if no significant signs of infection or gangreneous spread Uncontrolled hypertension Will start calcium channel melodie amlodipine will help with vasodilation around the lesion patient cleared by CPS and hand surgery to be discharged and follow-up as an outpatient Pt Condition on Discharge: Good Discharge Disposition: Discharge Home Discharge Time: <= 30 minutes Discharge Instructions DIET: Follow Instructions for: Heart Healthy Diet Activities you can perform: Weight Bearing as Rebeca Follow up Referrals: Hand Surgery - 1 Week with Nader Mcneill III, MD New Medications: Amlodipine (Amlodipine) 5 Mg Tab 5 MG PO DAILY for Blood Pressure Management, #30 TAB 0 Refills Oxycodone HCl/Acetaminophen (Oxycodone-Acetaminophen 5-325) 5 Mg-325 Mg Tablet 1 TAB PO Q4H PRN for pain > 4, #10 TAB Continued Medications: Hydroxychloroquine (Plaquenil) 200 Mg Tab 100 MG PO DAILY, #60 TAB 0 Refills Take with food Alia España MD May 30, 2017 08:15
[2017-05-30] MEDS ORDERED: PHARMACY ORDERED LAB ONE (19:45)
== END 2017-05-29 16:35 | disposition home or self-care (01) | DRG 546 ==
LOC: NEPE 17:28 → NEDA 21:48 → NEDH 05-28 01:48 → N05A 05-28 15:50
PROVIDERS: ADMIT Hospitalist; ATTEND Hospitalist
DX: I73.01 Raynaud's syndrome with gangrene (principal); I74.2 Embolism and thrombosis of arteries of the upper extremities; M32.9 Systemic lupus erythematosus, unspecified; J44.9 Chronic obstructive pulmonary disease, unspecified; I73.9 Peripheral vascular disease, unspecified; I10 Essential (primary) hypertension; F17.210 Nicotine dependence, cigarettes, uncomplicated; K21.9 Gastro-esophageal reflux disease without esophagitis; Z93.3 Colostomy status; K44.9 Diaphragmatic hernia without obstruction or gangrene; Z89.511 Acquired absence of right leg below knee; Z89.512 Acquired absence of left leg below knee
CPT/HCPCS: 73130; 73200; 73206; 80048; 80053; 85025; 85652; 86140; 87040; 87493; 96365; 96366; 96367; J2270; J3370; J7042; J7050; Q9967

== ENCOUNTER 2017-06-07 13:51 | Emergency (ER) | payer MEDICARE, BC ==
[~2017-06-07] VITALS: Ht 154.9 cm; Wt 47.0 kg
[~2017-06-07 13:51] MED LIST changes: +AMLO5TAB2 PO; -CIPR500T4 PO; -HYDR200T3 PO; -LORTA5 PO; +OXYC1TAB63 PO; +PLAQ200T PO; -PRED10 PO; -TYLE500T PO
[2017-06-07 14:11] VITALS: BP 127/63; PULSE 73; RESP 18; TEMP 99; O2SAT 95
[2017-06-07] MEDS ORDERED: ASPI-183 PO (14:15)
--- NOTE | 2017-06-07 14:40 | PD ---
HPI Chief Complaint: GI Complaint Time Seen by Provider: 14:16 Travel History International Travel<30 days: No Contact w/Intl Traveler<30days: No Traveled to known affect area: No History of Present Illness HPI The patient was seen and examined in the presence of the nurse. This patient reports that she spontaneously developed some bleeding from her mouth. She passed some blood clots. She called the paramedics. She denies vomiting up the blood or coughing up the blood. She did not have any epistaxis. She takes a daily aspirin but no other blood thinners. Symptom severity was moderate. No alleviating factors. Symptoms could be exacerbated by aspirin. He denies any postnasal drip. She keeps saying that the blood originated from her mouth. PFSH Past Medical History Arthritis: Yes Asthma: No Autoimmune Disease: Yes Blood Disorders: No Anxiety: Yes Depression: No Heart Rhythm Problems: No Cancer: No Cardiovascular Problems: Yes (PAD, PVD, raynaud's) High Cholesterol: No Chemotherapy: No Chest Pain: No Congestive Heart Failure: No COPD: Yes Cerebrovascular Accident: No Diabetes: No Diminished Hearing: No Endocrine: No Gastrointestinal Disorders: Yes (HX ESOPH. ULCER, C-DIFF COLITIS) GERD: Yes Genitourinary: Yes Headaches: Yes Hepatitis: No Hiatal Hernia: Yes Heparin Induced Thrombocytopen: No Hypertension: No Immune Disorder: No Implanted Vascular Access Dvce: Yes Kidney Stones: No Medical other: Yes (INCONTINENT URINE) Musculoskeletal: No Neurologic: Yes (LUPUS) Psychiatric: No Reproductive: No Respiratory: Yes Immunizations Current: Yes Migraines: No Radiation Therapy: No Renal Failure: No Seizures: No Sickle Cell Disease: No Sleep Apnea: No Thyroid Disease: No Ulcer: Yes (ESOPHAGEAL) ?: Not Menopausal: Yes : 4 Para: 3 : 1 Past Surgical History Abdominal Surgery: Yes (COLOSTOMY) AICD: No Arteriovenous Shunt: No Body Medical Devices: BRAIN CLIP Cardiac Surgery: No Ear Surgery: No Endocrine Surgery: No Eye Surgery: No Genitourinary Surgery: Yes (S/P collectomy, illeostomy in place) Gynecologic Surgery: No Insulin Pump: No Joint Replacement: No Neurologic Surgery: Yes (ANEURYSM Repair) Oral Surgery: No Pacemaker: No Thoracic Surgery: No Other Surgery: Yes (ileostomy, FEMPOP, ANGIO'S PRIOR TO AMPUTATIONS, CATARACT REMOVAL) Social History Alcohol Use: Yes (OCCASIONALLY) Tobacco Use: Yes (4 cigarettes a day for 5 years ) Substance Use: No Allergies-Medications (Allergen,Severity, Reaction): Coded Allergies: penicillin G (Unverified Allergy, Severe, Swelling, 05/27/17) *MDRO Multi-Drug Resistant Organism (Verified Adverse Reaction, Unknown, ) C.diff 10/2013 and 06/2014. Reported Meds & Prescriptions Reported Meds & Active Scripts Active Amlodipine (Amlodipine Besylate) 5 Mg Tab 5 Mg PO DAILY Reported Aspirin 325 Mg Tab 325 Mg PO DAILY Plaquenil (Hydroxychloroquine Sulfate) 200 Mg Tab 100 Mg PO DAILY Take with food Review of Systems General / Constitutional: No: Fever Eyes: No: Visual changes HENT: No: Headaches Cardiovascular: No: Chest Pain or Discomfort Respiratory: No: Shortness of Breath Gastrointestinal: No: Abdominal Pain Genitourinary: No: Dysuria Musculoskeletal: No: Pain Skin: No Rash Neurologic: No: Weakness Psychiatric: No: Depression Endocrine: No: Polydipsia Hematologic/Lymphatic: No: Easy Bruising Physical Exam Narrative GENERAL: Thin elderly appearing well-developed patient in no apparent distress. SKIN: Focused skin assessment reveals no rash and nodules. Skin is Warm and dry. HEAD: Atraumatic. Normocephalic. EYES: Pupils equal and round. No scleral icterus. No injection or drainage. ENT: No nasal bleeding or discharge. Mucous membranes pink and moist. Examination of the mouth was done. Her dentures were removed. I do not see any sign of active bleeding anywhere. There is some old blood in the mouth in scant amounts. NECK: Trachea midline. No JVD. CARDIOVASCULAR: Regular rate and rhythm. No murmur appreciated. RESPIRATORY: No accessory muscle use. Clear to auscultation. Breath sounds equal bilaterally. GASTROINTESTINAL: Abdomen soft, non-tender, nondistended. Hepatic and splenic margins not palpable. MUSCULOSKELETAL: Bilateral BKA status. No clubbing. No cyanosis. No edema. NEUROLOGICAL: Awake and alert. No obvious cranial nerve deficits. Motor grossly within normal limits. Normal speech. PSYCHIATRIC: Appropriate mood and affect; insight and judgment normal. Data Data Last Documented VS Vital Signs Date Time Temp Pulse Resp B/P (MAP) Pulse Ox O2 Delivery O2 Flow Rate FiO2 06/07/17 14:16 18 06/07/17 14:11 99.0 73 127/63 (84) 95 Orders Orders Complete Blood Count With Diff (06/07/17 14:28) Basic Metabolic Panel (Bmp) (06/07/17 14:28) Prothrombin Time / Inr (Pt) (06/07/17 14:28) Act Partial Throm Time (Ptt) (06/07/17 14:28) Iv Access Insert/Monitor (06/07/17 14:28) Labs Laboratory Tests Test 06/07/17 14:37 White Blood Count 4.3 TH/MM3 Red Blood Count 3.58 MIL/MM3 Hemoglobin 11.8 GM/DL Hematocrit 34.3 % Mean Corpuscular Volume 95.8 FL Mean Corpuscular Hemoglobin 32.9 PG Mean Corpuscular Hemoglobin Concent 34.4 % Red Cell Distribution Width 13.5 % Platelet Count 386 TH/MM3 Mean Platelet Volume 7.6 FL Neutrophils (%) (Auto) 63.1 % Lymphocytes (%) (Auto) 23.5 % Monocytes (%) (Auto) 12.6 % Eosinophils (%) (Auto) 0.3 % Basophils (%) (Auto) 0.5 % Neutrophils # (Auto) 2.7 TH/MM3 Lymphocytes # (Auto) 1.0 TH/MM3 Monocytes # (Auto) 0.5 TH/MM3 Eosinophils # (Auto) 0.0 TH/MM3 Basophils # (Auto) 0.0 TH/MM3 CBC Comment DIFF FINAL Differential Comment Prothrombin Time 10.1 SEC Prothromb Time International Ratio 1.0 RATIO Activated Partial Thromboplast Time 32.2 SEC Blood Urea Nitrogen 10 MG/DL Creatinine 0.79 MG/DL Random Glucose 104 MG/DL Calcium Level 8.6 MG/DL Sodium Level 135 MEQ/L Potassium Level 4.0 MEQ/L Chloride Level 99 MEQ/L Carbon Dioxide Level 28.8 MEQ/L Anion Gap 7 MEQ/L Estimat Glomerular Filtration Rate 87 ML/MIN [facility] Medical Decision Making Medical Screen Exam Complete: Yes Emergency Medical Condition: Yes Medical Record Reviewed: Yes Differential Diagnosis Oral cavity bleeding, epistaxis, peptic ulcer disease Narrative Course I have reviewed the patient's electronic medical record. Patient was hospitalized about 10 days ago for evaluation of vascular blockage in the right arm. IV placed and labs sent Blood pressure is normal I observe this patient for several hours. She only produced a tiny little 1 cm clotted blood in all that time. The patient wants to go home. She is very stable. We had a lengthy discussion with family members and patient. I do not have a any way to be 100% certain where this blood came from. There is no evidence of oral cavity bleeding. My greatest suspicion is a small posterior nasal bleed or posterior pharynx bleed that I cannot see. There is been no epistaxis. She has been doubling up on her aspirin and I have advised her to stop the aspirin altogether until this bleeding issue is controlled. I did place a call to ENT to discuss. I would have her start with ENT follow-up. She denies ever having an esophageal ulcer despite her chart reading that. She should get GI follow- up if her nose is not the source she will return if her bleeding intensifies or worsens. Her hemoglobin is the same as it was before any bleeding started Diagnosis Primary Impression: Epistaxis Additional Instructions: The patient was advised to follow up with their physician and return if they worsen. Stop aspirin Follow-up with ENT Med/Other Pt SpecificInfo: Other Disposition: 01 DISCHARGE HOME Condition: Stable Gregorio Schwarz MD Jun 07, 2017 14:40
[2017-06-07 15:25] LABS: AUTOMATED NEUTROPHIL # 2.7 TH/MM3 (1.8-7.7); BASOPHIL % 0.5 % (0.0-2.0); EOSINOPHIL % 0.3 % (0.0-4.0); HEMATOCRIT 34.3 % (35.0-46.0); HEMOGLOBIN 11.8 GM/DL (11.6-15.3); LYMPH % 23.5 % (9.0-44.0); MEAN CELL VOLUME 95.8 FL (80.0-100.0); MEAN CORPUSCULAR HEMOGLOBIN 32.9 PG (27.0-34.0); MEAN CORPUSCULAR HGB CONC 34.4 % (32.0-36.0); MEAN PLATELET VOLUME 7.6 FL (7.0-11.0); MONO % 12.6 % (0.0-8.0); MONOCYTE # 0.5 TH/MM3 (0-0.9); NEUT % 63.1 % (16.0-70.0); PLATELET COUNT 386 TH/MM3 (150-450); RED BLOOD COUNT 3.58 MIL/MM3 (4.00-5.30); RED CELL DISTRIBUTION WIDTH 13.5 % (11.6-17.2); WHITE BLOOD COUNT 4.3 TH/MM3 (4.0-11.0)
[2017-06-07 15:36] LABS: PROTHROMBIN TIME - PATIENT 10.1 SEC (9.8-11.6)
[2017-06-07 15:45] LABS: BICARBONATE 28.8 MEQ/L (21.0-32.0); CALCIUM 8.6 MG/DL (8.5-10.1); CREATININE 0.79 MG/DL (0.50-1.00)
== END 2017-06-07 17:48 | disposition home or self-care (01) ==
LOC: NEPD 13:51
DX: R04.0 Epistaxis (principal); F41.9 Anxiety disorder, unspecified; I73.00 Raynaud's syndrome without gangrene; J44.9 Chronic obstructive pulmonary disease, unspecified; K21.9 Gastro-esophageal reflux disease without esophagitis; M32.9 Systemic lupus erythematosus, unspecified; I73.9 Peripheral vascular disease, unspecified; F17.210 Nicotine dependence, cigarettes, uncomplicated
CPT/HCPCS: 80048; 85025; 85610; 85730; 99283

== ENCOUNTER → 2017-06-30 | Outpatient (CLI) | payer MEDICARE, BC ==
[~2017-06-30] MED LIST changes: +ASPI-183 PO; +HYDR-3580 PO; -OXYC1TAB63 PO
[2017-06-30 13:10] LABS: AUTOMATED NEUTROPHIL # 3.8 TH/MM3 (1.8-7.7); BASOPHIL % 0.6 % (0.0-2.0); EOSINOPHIL % 0.2 % (0.0-4.0); HEMATOCRIT 35.9 % (35.0-46.0); HEMOGLOBIN 11.7 GM/DL (11.6-15.3); LYMPH % 17.2 % (9.0-44.0); LYMPHOCYTE # 0.9 TH/MM3 (1.0-4.8); MEAN CELL VOLUME 95.2 FL (80.0-100.0); MEAN CORPUSCULAR HGB CONC 32.5 % (32.0-36.0); MEAN PLATELET VOLUME 7.5 FL (7.0-11.0); MONO % 8.6 % (0.0-8.0); MONOCYTE # 0.5 TH/MM3 (0-0.9); NEUT % 73.4 % (16.0-70.0); PLATELET COUNT 378 TH/MM3 (150-450); RED BLOOD COUNT 3.77 MIL/MM3 (4.00-5.30); RED CELL DISTRIBUTION WIDTH 12.7 % (11.6-17.2); WHITE BLOOD COUNT 5.2 TH/MM3 (4.0-11.0)
[2017-06-30 13:10] LABS: BILIRUBIN, URINE NEG (NEG); BLOOD, URINE NEG (NEG); GLUCOSE,URINE NEG (NEG); KETONE, URINE NEG (NEG); NITRITE,URINE NEG (NEG); PH, URINE 5.5 (5.0-8.5); URINE COLOR YELLOW (YELLW/STRAW); URINE LEUKOCYTE ESTERASE SMALL (NEG)
[2017-06-30 13:34] LABS: BACTERIA, URINE MANY /hpf; WHITE BLOOD CELL CLUMPS RARE
== END ==
LOC: PHPRE 11:20
PROVIDERS: ATTEND Pain Medicine Interventional Pain Medicine
DX: Z01.812 Encounter for preprocedural laboratory examination (principal); N39.0 Urinary tract infection, site not specified; B96.1 Klebsiella pneumoniae [K. pneumoniae] as the cause of diseases classified elsewhere
CPT/HCPCS: 36415; 81001; 84132; 85025; 87077; 87086; 87186

== ENCOUNTER → 2017-07-09 | Day surgery (SDC) | payer MEDICARE, BC ==
[~2017-07-09] VITALS: Ht 154.9 cm; Wt 41.0 kg
[~2017-07-09] MED LIST changes: -ASPI-183 PO; +BUPIVACAINE/EPINEPHRINE 0.5% PF 10 ML VIAL ONE; +CHLORHEXIDINE GLUCONATE 2 % 1 PACK (2 CLOTHS) TOPICAL PRN; +HYDROmorphone HCL PF 0.5 MG/0.5 ML SYRINGE ONE; +LACTATED RINGER'S 1000 ML INJ 1,000 ML ONE; +LACTATED RINGER'S 1000 ML IV PRN; +METOPROLOL TARTRATE 25 MG TAB PO PRN; +POVIDONE IODINE 5% (ANTISEPSIS KIT) 4 APPLICATIONS EACH NARE PRN; +SODIUM CHLORID 0.9% 500 ML IV PRN; +SODIUM CHLORIDE 0.9% INJ 100 ML ONE; +VANCOMYCIN 500 MG VIAL ONE
[2017-07-09 13:05] VITALS: BP 140/73; PULSE 80; RESP 16; TEMP 98.2; O2SAT 100
--- NOTE | 2017-07-09 13:35 | MP ---
cc: Guerda Umana MD DATE OF OPERATION: 07/09/2017 DATE OF : 1950 PROCEDURE: Implantation of Medtronic octrodes x2 for spinal cord stimulation. PREPROCEDURE DIAGNOSIS: Severe vascular insufficiency and Raynaud's syndrome. POSTPROCEDURE DIAGNOSIS: Severe vascular insufficiency and Raynaud's syndrome. PROCEDURE NOTE: An IV was started in the holding area. The patient was given IV antibiotics and taken to the operating room. Her surgical consent was signed. Her surgical site was marked. The patient was placed in the prone position on a fluoroscopically compatible table. Her back was prepped with ChloraPrep and draped with sterile drapes. Fluoroscopy was used to visualize the T12-L1 interlaminar space. The skin was infiltrated with 0.5% Marcaine containing epinephrine. Then, a modified Tuohy needle from the Medtronic kit was advanced just to the right of the midline using fluoroscopic guidance and the loss of resistance technique into the epidural space, and a Medtronic Octrode was threaded in a cephalad direction, slightly to the right of the midline until the octrode was at the C6-C7 and 8 level. Then, a second Medtronic Tuohy needle was advanced slightly to the left of the midline at T12-L1 and a second octrode was threaded in a cephalad direction until the cephalad tip of that electrode was at C7. Multiple attempts were made to advance it to higher levels, but met with obstruction. At this point, the patient was awakened and stimulation took place at all of the electrodes and at all of the electrodes the patient was feeling good stimulation in her right and left upper extremity including the painful hand. Then, the patient was re-sedated and the incision around the needles was enlarged. The needles were removed. The stylets were removed. Fluoroscopy was used to confirm the leads did not move during the anchoring process at which time a Silastic anchor was placed around each lead and secured to the underlying fascia using two 2-0 Ethibond sutures. Again, fluoroscopy confirmed the leads were not moved during this process. Then, the stimulating leads were coiled in a subcutaneous pocket in the lumbar area. Distal extension wires were connected to the stimulating leads by tightening an Aidan screw. Impedance was checked at the bedside and found to be appropriate in all of the electrodes. Then, the distal extension connection was covered with a Silastic cover secured at both hands with 2-0 Ethibond suture. Then, a tunneling device was used to tunnel the distal extension wires to exit on the patient's left flank. The incision was irrigated with Betadine. Closure took place with 3-0 Monocryl in the subcuticular tissue and 3-0 nylon on the skin. The incisions were covered with sterile adhesive dressings and the patient was taken to the recovery room with stable vital signs, neurologically intact. W. MD LUL Sullivan/JANNA , 01:10 PM , 01:34 PM
--- NOTE | 2017-07-09 14:21 | RADRPT ---
EXAM DATE: 07/09/2017 2:18 PM EDT AGE/SEX: 67 years / Female INDICATIONS: Level localization - spine stimulator insertion. CLINICAL DATA: This is the patient's initial encounter. Patient reports that signs and symptoms have been present for 1 day and indicates a pain score of Nonresponsive. MEDICAL/SURGICAL HISTORY: Non-responsive. Non-responsive. COMPARISON: No prior [facility] exams available for comparison. FINDINGS: Single fluoroscopic AP view of the cervical spine demonstrates spinal stimulator wires projecting at likely C5-6 and C6-7 levels although this is difficult to verify given lack of lateral view. CONCLUSION: 1. Cervical spine stimulator wires, as above. Electronically signed by: Steve Malhotra MD 07/09/2017 2:19 PM EDT
== END | disposition home or self-care (01) ==
LOC: PHSDC 08:34
PROVIDERS: ATTEND Pain Medicine Interventional Pain Medicine
DX: I73.00 Raynaud's syndrome without gangrene (principal); I99.8 Other disorder of circulatory system; G56.43 Causalgia of bilateral upper limbs
CPT/HCPCS: 01936; 63650; 72020; 76000; C1778; J1170; J3370; J7120

== ENCOUNTER → 2017-07-16 | Day surgery (SDC) | payer MEDICARE, BC ==
[~2017-07-16] VITALS: Ht 154.9 cm; Wt 41.0 kg
[~2017-07-16] MED LIST changes: -BUPIVACAINE/EPINEPHRINE 0.5% PF 10 ML VIAL ONE; +BUPIVACAINE/EPINEPHRINE 0.75% PF 30 ML VIAL ONE; -HYDROmorphone HCL PF 0.5 MG/0.5 ML SYRINGE ONE; +INSULIN HUMAN REGULAR 1,000 UNITS/10 ML VIAL SQ PRN; -LACTATED RINGER'S 1000 ML INJ 1,000 ML ONE; -SODIUM CHLORIDE 0.9% INJ 100 ML ONE; +VANCOMYCIN 500 MG/NS 100 ML IV SCH
[2017-07-16 13:25] VITALS: TEMP 98.3
--- NOTE | 2017-07-16 13:48 | MP ---
cc: Guerda Umana MD DATE OF OPERATION: 07/16/2017 PROCEDURE: Implantation of Medtronic dual channel rechargeable pulse generator for spinal cord stimulation. PREPROCEDURE DIAGNOSIS: Raynaud disease with severe vascular insufficiency and intractable pain. POSTPROCEDURE DIAGNOSIS: Raynaud disease with severe vascular insufficiency and intractable pain. DESCRIPTION OF PROCEDURE: IV was started in the holding area. The patient was given IV antibiotics. Surgical consent was signed. The surgical site was marked. The patient was taken to the operating room and placed in the right lateral decubitus position. All pressure points were checked and padded, and she was sedated and monitored by anesthesia. Then, the distal extension wire and the patient's left flank was prepped with alcohol and cut with sterile scissors. Then, her back was prepped with ChloraPrep and draped with sterile drapes. The lumbar incision was infiltrated with Marcaine 0.75% with epinephrine and also an area in her left buttock was also infiltrated. The lumbar incision was reopened. The distal extension wires were disconnected from the stimulating electrodes by loosening Aidan screws. Then, an incision was made in the left buttock and a subcutaneous pocket was created. A tunneling device was used to tunnel the stimulating lead from the lumbar incision to the subcutaneous pocket in the left buttock. There, the stimulating leads were connected to a [employer] dual channel rechargeable pulse generator by tightening Aidan screws. Impedance was checked at the bedside and found to be appropriate in all of her electrodes. Then, the buttock and lumbar incision were irrigated with Betadine. The redundant wire leads were coiled behind the pulse generator. It was placed in the buttock subcutaneous pocket and anchored to the underlying fascia using two 2-0 Ethibond sutures. Then, both incisions were closed using 3-0 Monocryl in the subcuticular tissue and 3-0 nylon on the skin. The incisions were covered with a sterile adhesive dressings, and the patient was taken to the recovery room with stable vital signs and neurologically intact. MD LUL Barrios/JANNA , 01:24 PM , 01:47 PM
[2017-07-16 14:02] VITALS: BP 160/75; PULSE 81; RESP 14
== END | disposition home or self-care (01) ==
LOC: PHSDC 09:05
PROVIDERS: ATTEND Pain Medicine Interventional Pain Medicine
DX: I73.00 Raynaud's syndrome without gangrene (principal); I87.2 Venous insufficiency (chronic) (peripheral); I73.9 Peripheral vascular disease, unspecified; G56.43 Causalgia of bilateral upper limbs
CPT/HCPCS: 00300; 63685; C1820; J3370; J7120

== ENCOUNTER → 2017-07-30 | Day surgery (SDC) | payer MEDICARE, BC ==
[~2017-07-30] VITALS: Ht 154.9 cm; Wt 45.0 kg
[~2017-07-30] MED LIST changes: +ACETAMINOPHEN 1000 MG/100 ML 100 ML IV ONE; -AMLO5TAB2 PO; +BUPIVACAINE HCL PF 0.5% 10 ML VIAL ONE; -BUPIVACAINE/EPINEPHRINE 0.75% PF 30 ML VIAL ONE; +CIPR250T52 PO; +CIPROFLOXACIN/DEXT 400 MG/200 ML IV PRN; +HYDR-3288 PO; -INSULIN HUMAN REGULAR 1,000 UNITS/10 ML VIAL SQ PRN; +LIDOCAINE HCL 2% 50 ML VIAL ONE; +NEOMYCIN/POLYMYXIN 1 ML G.U. IRRIGANT ONE; -VANCOMYCIN 500 MG VIAL ONE; -VANCOMYCIN 500 MG/NS 100 ML IV SCH
[2017-07-30 11:10] VITALS: PULSE 81
--- NOTE | 2017-07-30 11:37 | MP ---
cc: Nader Mcneill MD DATE OF OPERATION: 07/30/2017 PREOPERATIVE DIAGNOSIS: Ischemia of right hand. PROCEDURE: 1. Partial amputation, right thumb. 2. Partial amputation, right index finger. SURGEON: Nader Mcneill III, MD PROCEDURE: The patient was brought to the operating room, placed supine on the operating room table. After the correct side, site and side of surgery were verified by members of each team in the room multiple times including the patient and myself, and after adequate preoperative markings, preoperative written consent was verified by everyone and after adequate IV antibiotics were administered and general anesthesia had been achieved, the right upper extremity was prepped and draped in the traditional sterile surgical fashion. A partial amputation was performed to the level of the IP joint with a large radial flap that was viable and used to closed wound. The distal aspect of the proximal phalanx appeared viable as did all the tissue surrounding it and closing it. There was no gross infection of the mass. The exposed bone was passed off the field as a specimen. Thorough irrigation was performed. The debridement was debridement down to clean viable skin edges was performed and 3-0 and 4-0 interrupted sutures were used to completely close the wound, but was left slightly loose to drain if needed. There was capillary refill of 2 seconds or better in the radially based flap. Attention was then paid to the index finger and a fishmouth incision was then made. The distal and middle phalanges were then amputated at the level of the IP joint and the articular cartilage was debrided away and fish mouth closure cheating dorsally was made using interrupted 3-0 and 4-0 nylon sutures. A thorough irrigation was performed prior to closure as well. Small areas were left loosely closed to allow for any drainage if needed. Capillary refill was 2 seconds or better in the fingertips. The hand and arm were thoroughly cleansed and dried. Betadine, Adaptic dressing was applied on top of the wounds. Superficial debridement of the necrotic paronychial edge of the middle finger was performed and Betadine ointment was applied, followed by a Band-Aid. There was no exposure of deep tissue. A light dressing was applied in usual fashion. The patient was awakened from anesthesia and transported to the Postanesthesia Care Unit awake and in stable condition. MD МАРИЯ Solis , 11:07 AM , 11:35 AM
[2017-07-30 12:35] VITALS: BP 120/68; PULSE 80; RESP 16; TEMP 98.2; O2SAT 99
== END | disposition home or self-care (01) ==
LOC: PHSDC 08:06
PROVIDERS: ATTEND Orthopaedic Surgery Hand Surgery
DX: I99.8 Other disorder of circulatory system (principal)
CPT/HCPCS: 01830; 26951; 26952; 88305; 88311; J0131; J0744; J3010; J7120